=== PATIENT | male | born 1965 | race Two or more races ===

== ENCOUNTER 2023-10-17 23:14 | Emergency (ER) | payer OTHER ==
[2023-10-17 23:27] VITALS: TEMP 98.4; BMI 28.1
[2023-10-18] MEDS ORDERED: ACETAMINOPHEN 500 MG TABLET (FP) ONE (00:08)
[2023-10-18] MEDS: ACETAMINOPHEN 500 MG TABLET (FP) PO ONE (00:23)
[2023-10-18] MEDS: HYDROCHLOROTHIAZIDE 12.5 MG CAPSULE (FP) PO ONE (00:23)
[2023-10-18 01:47] VITALS: BP 180/101; PULSE 67; RESP 20
== END 2023-10-18 02:25 | disposition home or self-care (01) ==
LOC: JER 23:14
DX: M25.561 Pain in right knee (principal); I10 Essential (primary) hypertension; W18.39XA Other fall on same level, initial encounter
CPT/HCPCS: 73564-TC-RT-FY; 99283-25